=== PATIENT | male | born 1955 | race Caucasian/White ===

== ENCOUNTER 2018-07-27 21:18 | Emergency (ER) | payer MEDICARE, MEDICAID ==
[2018-07-27] MEDS ORDERED: Sodium Chloride 0.9% 10 ML Syringe FLUSH PRN (21:50)
[2018-07-27] MEDS ORDERED: Lactated Ringers 1,000 ML IV ONE (21:50)
--- NOTE | 2018-07-27 22:05 | EDM.PDOC ---
<Phill Naranjo - Last Filed: 07/27/18 22:00> ED HPI GENERAL MEDICAL PROBLEM - General Chief Complaint: Neuro Symptoms/Deficits Stated Complaint: unresponsive Time Seen by Provider: 07/27/18 21:49 Source of Information: Reports: EMS, Other (staff from [facility] here to provide HPI) - History of Present Illness INITIAL COMMENTS - FREE TEXT/NARRATIVE: Patient presents to the ED via EMS with reports of unresponsiveness. He is awake and alert on arrival. Breathing normally. He is intellectually challenged and does not provide any of his own HPI or ROS. Does have history of seizure disorder. No one saw him actively seize today. Reportedly has become more unresponsive throughout the day with an episode of febrility and sweating. He is afebrile here. Does have cough. Is incontinent of stool and urine. Onset: Today, Gradual Duration: Getting Worse Location: Reports: Generalized - Related Data Allergies Allergy/AdvReac Type Severity Reaction Status Date / Time No Known Allergies Allergy Verified 07/27/18 22:09 Home Meds: Home Meds Amoxicillin 875 mg BID 09/10/13 [History] Calcium Carbonate [Calcium Carbonate 250 MG/ML Susp] 5 ml PO BID 09/10/13 [ History] Clobetasol [Clobetasol 0.05%] 30 gm TOP BID 09/10/13 [History] Furosemide 40 mg DAILY 09/10/13 [History] Gabapentin 1,600 mg TID 09/10/13 [History] LORazepam [Ativan] 1 mg PO PRN 09/10/13 [History] Lactulose [Generlac] 09/10/13 [History] Magnesium Hydroxide [Milk of Magnesia] 20 ml PO DAILY 09/10/13 [History] Multivitamin [Tab A Torrie] 1 each PO DAILY 09/10/13 [History] OLANZapine [Olanzapine] 2.5 mg BEDTIME 09/10/13 [History] OXcarbazepine [Trileptal] 1,200 mg PO BID 09/10/13 [History] Omeprazole 20 mg DAILY 09/10/13 [History] PARoxetine [Paxil] 40 mg PO DAILY 09/10/13 [History] Phenytoin Sodium Extended [Dilantin] 200 mg BEDTIME 09/10/13 [History] levETIRAcetam [Levetiracetam] 1,500 mg PO BID 09/10/13 [History] Social & Family History - Living Situation & Occupation Living situation: Reports: Other ED ROS GENERAL - Review of Systems Review Of Systems: See Below (obtained by [facility] staff) Constitutional: Reports: Fever, Diaphoresis HEENT: Reports: No Symptoms Respiratory: Reports: Cough Cardiovascular: Reports: No Symptoms Endocrine: Reports: No Symptoms GI/Abdominal: Reports: No Symptoms : Reports: No Symptoms Musculoskeletal: Reports: No Symptoms Skin: Reports: No Symptoms Neurological: Reports: Weakness Hematologic/Lymphatic: Reports: No Symptoms Immunologic: Reports: No Symptoms ED EXAM, NEURO - Physical Exam Exam: See Below Exam Limited By: Physical Impairment General Appearance: Alert, WD/WN, No Apparent Distress Eye Exam: Bilateral Eye: EOMI, Normal Inspection Ears: Normal TMs Nose: Normal Inspection, Normal Mucosa, No Blood Throat/Mouth: Normal Inspection, Normal Lips, Normal Teeth, Normal Gums, Normal Oropharynx, Normal Voice, No Airway Compromise Head Exam: Atraumatic, Normocephalic Neck: Normal Inspection, Supple, Non-Tender, Full Range of Motion Respiratory/Chest: No Respiratory Distress, Lungs Clear, Normal Breath Sounds, No Accessory Muscle Use, Chest Non-Tender Cardiovascular: Normal Peripheral Pulses, Regular Rate, Rhythm, No Edema, No Gallop, No JVD, No Murmur, No Rub GI/Abdominal: Normal Bowel Sounds, Soft, Non-Tender, No Organomegaly, No Distention, No Abnormal Bruit, No Mass Neurological: Alert, Normal Mood/Affect, Normal Dorsiflexion, CN II-XII Intact, Normal Plantar Flexion, Normal Gait, Normal Reflexes, No Motor/Sensory Deficits , Oriented x 3 Extremities: Normal Inspection, Normal Range of Motion, Non-Tender, No Pedal Edema, Normal Capillary Refill Psychiatric: Normal Affect, Normal Mood Skin Exam: Warm, Dry, Intact, Normal Color, No Rash Course - Vital Signs Last Recorded V/S: Last Vital Signs Temp 35.8 C 07/27/18 21:18 Pulse 63 07/27/18 23:17 Resp 16 07/27/18 23:17 BP 135/58 L 07/27/18 23:17 Pulse Ox 98 07/27/18 21:18 - Orders/Labs/Meds Orders: Active Orders 24 hr Category Date Time Status CULTURE BLOOD [BC] Stat Lab 07/27/18 22:30 Results CULTURE BLOOD [BC] Stat Lab 07/27/18 22:40 Received Blood Culture x2 Reflex Set [OM.PC] Stat Oth 07/27/18 21:57 Ordered Saline Lock Insert [OM.PC] Routine Oth 07/27/18 21:50 Ordered Labs: Laboratory Tests 07/27/18 07/27/18 07/27/18 Range/Units 22:30 22:30 22:30 WBC 9.3 (4.0-10.0) x10^3/uL RBC 4.50 (4.5-6.0) x10^6/uL Hgb 14.0 (14.0-18.0) g/dL Hct 39.8 L (40.0-52.0) % MCV 88.4 D (78.0-93.0) fL MCH 31.1 (26.0-32.0) pg MCHC 35.2 (32.0-36.0) g/dL RDW Coeff of Rolando 12.1 (10.0-15.0) % Plt Count 239 (130-400) x10^3/uL Neut % (Auto) 70.3 (50.0-80.0) % Lymph % (Auto) 15.9 L (25.0-50.0) % [place] % (Auto) 7.5 (2.0-11.0) % Eos % (Auto) 5.9 H (0.0-4.0) % Baso % (Auto) 0.4 (0.2-1.2) % Sodium 132 L (136-145) mmol/L Potassium 4.0 (3.5-5.1) mmol/L Chloride 95 L (98-107) mmol/L Carbon Dioxide 29 (21-32) mmol/L Anion Gap 12.0 (10-20) mmol/L BUN 15 (7-18) mg/dL Creatinine 0.8 (0.70-1.30) mg/dL Est Cr Clr Drug Dosing 89.06 mL/min Estimated GFR (MDRD) > 60 Glucose 116 H (74-106) mg/dL Lactic Acid 1.0 (0.4-2.0) mmol/L Calcium 8.4 L (8.5-10.1) mg/dL Corrected Calcium 8.64 (8.5-10.1) mg/dL Magnesium 2.0 (1.8-2.4) mg/dL Total Bilirubin 0.3 (0.2-1.0) mg/dL AST 16 (15-37) U/L ALT 30 (16-63) U/L Alkaline Phosphatase 110 (46-116) U/L NT-Pro-B Natriuret Pep (<=125) pg/mL Total Protein 7.1 (6.4-8.2) g/dL Albumin 3.7 (3.4-5.0) g/dL Globulin 3.4 Albumin/Globulin Ratio 1.09 /08/10 Range/Units 22:30 WBC (4.0-10.0) x10^3/uL RBC (4.5-6.0) x10^6/uL Hgb (14.0-18.0) g/dL Hct (40.0-52.0) % MCV (78.0-93.0) fL MCH (26.0-32.0) pg MCHC (32.0-36.0) g/dL RDW Coeff of Rolando (10.0-15.0) % Plt Count (130-400) x10^3/uL Neut % (Auto) (50.0-80.0) % Lymph % (Auto) (25.0-50.0) % [place] % (Auto) (2.0-11.0) % Eos % (Auto) (0.0-4.0) % Baso % (Auto) (0.2-1.2) % Sodium (136-145) mmol/L Potassium (3.5-5.1) mmol/L Chloride (98-107) mmol/L Carbon Dioxide (21-32) mmol/L Anion Gap (10-20) mmol/L BUN (7-18) mg/dL Creatinine (0.70-1.30) mg/dL Est Cr Clr Drug Dosing mL/min Estimated GFR (MDRD) Glucose (74-106) mg/dL Lactic Acid (0.4-2.0) mmol/L Calcium (8.5-10.1) mg/dL Corrected Calcium (8.5-10.1) mg/dL Magnesium (1.8-2.4) mg/dL Total Bilirubin (0.2-1.0) mg/dL AST (15-37) U/L ALT (16-63) U/L Alkaline Phosphatase (46-116) U/L NT-Pro-B Natriuret Pep 32 (<=125) pg/mL Total Protein (6.4-8.2) g/dL Albumin (3.4-5.0) g/dL Globulin Albumin/Globulin Ratio Meds: Medications Discontinued Medications Generic Name Dose Route Start Last Admin Trade Name Freq PRN Reason Stop Dose Admin Lactated Ringer's 1,000 mls @ 999 mls/hr 07/27/18 21:50 07/27/18 22:40 Ringers, Lactated IV 07/27/18 22:50 999 mls/hr ONETIME ONE Administration Sodium Chloride 10 ml 07/27/18 21:50 Saline Flush FLUSH ASDIRECTED PRN Keep Vein Open Departure - Departure Disposition: DC/Tfer to Medicaid [facility] Clinical Impression: Seizure - Discharge Information Referrals: Andrew Colorado MD [Primary Care Provider] - Forms: ED Department Discharge Additional Instructions: Lab work was normal. CXR and CT was unremarkable. Follow-up with primary when needed. <Laureen Whitt L - Last Filed: 07/28/18 09:46> ED HPI GENERAL MEDICAL PROBLEM - History of Present Illness INITIAL COMMENTS - FREE TEXT/NARRATIVE: I did take over for Taras. I did review the chest x-ray. I also reviewed the CAT scan and lab results. She was getting thirsty and wanted a diet Coke. Patient was accompanied by staff. He was discharged back home. Drug level was done on his anti-L epileptics. This is a send out. He will be seeing his neurologist on . The evaluation be back by . Patient is return if he has any further issues. Patient is essentially back to his baseline. Blood pressure was rechecked and it was in the 130s systolic. Past Medical History Neurological History: Reports: Brain Injury (Did review his previous medical history.) Social & Family History - Tobacco Use Smoking Status *Q: Never Smoker Departure - Departure Time of Disposition: 23:13 Condition: Good - Discharge Information *PRESCRIPTION DRUG MONITORING PROGRAM REVIEWED*: Not Applicable *COPY OF PRESCRIPTION DRUG MONITORING REPORT IN PATIENT REJI: Not Applicable
[2018-07-27 23:03] LABS: CHLORIDE,CL 95 mmol/L (98-107); SODIUM,NA 132 mmol/L (136-145)
[2018-07-27 23:18] VITALS: BP 135/58
--- NOTE | 2018-07-28 08:33 | CT ---
[id number] CT/CT Head WO IV EXAM: NONCONTRAST HEAD CT INDICATION: Change in unresponsiveness. COMPARISON: None. 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 Moderate to severe cerebellar and mild to moderate cerebral atrophy. No acute hemorrhage, mass effect, midline shift or hydrocephalus. No extra-axial fluid collection. Moderate bilateral ethmoid and left sphenoid sinus mucosal thickening with milder changes in the bilateral maxillary and right sphenoid sinuses. There is some associated osseous hypertrophy of the left sphenoid sinus wall suggesting a chronic or recurrent sinusitis. IMPRESSION: 1. Large chronic right MCA territory infarct. 2. Sinusitis. Kurt Cheema MD 07/28/18 0831 Thank you for allowing us to participate in the care of your patient.
--- NOTE | 2018-07-28 09:12 | CR ---
[id number] RAD/RAD Chest PA or AP 1V EXAM: FRONTAL CHEST INDICATION: Cough and fever. COMPARISON: September 10, 2013. DISCUSSION: Lungs are mildly hypoinflated with mild basilar atelectasis and central vascular crowding. No acute infiltrates are identified, but repeat with improved inspiration could be performed if symptoms persist. Mild apparent cardiomegaly may relate to magnification from portable technique and low lung volumes. IMPRESSION: 1. Hypoinflation. Kurt Cheema MD 07/28/18 0909 Thank you for allowing us to participate in the care of your patient.
== END 2018-07-27 23:51 ==
LOC: VM.ED 21:18
DX: G40.909 Epilepsy, unspecified, not intractable, without status epilepticus (principal); Z79.899 Other long term (current) drug therapy
CPT/HCPCS: 36415; 70450; 71045; 80053; 83605; 83735; 83880; 85025; 87040; 96360; 99285; J7120; 99284-GF

== ENCOUNTER 2019-02-28 14:31 | Inpatient (IN) | payer MEDICARE, MEDICAID ==
[2019-02-28] MEDS ORDERED: Sodium Chloride 0.9% 1,000 ML IV ONE ×3 (14:49→18:17)
--- NOTE | 2019-02-28 15:09 | CR ---
[id number] RAD/RAD Chest PA or AP 1V EXAM: SINGLE VIEW CHEST. INDICATION: SHORTNESS OF BREATH COMPARISON: CORRELATION IS MADE WITH THE EXAM OF JULY 27, 2018 FINDINGS: The left hemidiaphragm is not well seen This likely is technically related The lungs otherwise are clear The cardiomediastinal contour is enlarged but stable There is mild bowel distention IMPRESSION: NO OBVIOUS PNEUMONIA OR EDEMA Cleveland Cardoso MD 02/28/19 4220 Thank you for allowing us to participate in the care of your patient.
--- NOTE | 2019-02-28 16:06 | EDM.PDOC ---
ED HPI GENERAL MEDICAL PROBLEM - General Chief Complaint: General Time Seen by Provider: 02/28/19 14:35 Source of Information: Reports: [facility] Records, Old Records History Limitations: Reports: Physical Impairment - History of Present Illness INITIAL COMMENTS - FREE TEXT/NARRATIVE: Patient had teeth extraction on . After which she did not respond or was slow to respond. He has not been eating or drinking the last couple of days. No increased seizure activity per se. He is here with his staff. He has not had a fever. His blood pressure was 87. After IV fluids it did go up to 91. Talked to Nolan Garcia [employer] at 1645. He agreed to accept the patient. Afterwards the blood pressure dropped to 79 and we did have to give him Solu-Cortef of 100 mg. Also gave him Albumin 25%. Also he received Rocephin after I found out that his lactic acid was 3.6. Blood cultures had already been done. After I saw that his systolic blood pressure had dropped to 79 after talking to the hospitalist I did consider a consultation with [place] however the patient did respond to the volume albumin, and steroid. He also received a DuoNeb. I did schedule another lactic acid 4 hours from the last lactic acid. He does normally take Lasix. His BNP was elevated but we do have to give him some volume but we will have to use it somewhat sparingly after the first 2 L. I had admitted the patient before and he responded well and he was able to start drinking diet Coke which is a favorite for him. He has not had a diet Coke since his tooth extraction. We did catheter him for a urine culture and the urine was quite malodorous. CT of the head is being considered. Onset: Gradual Duration: Getting Worse Location: Reports: Generalized - Related Data Allergies Allergy/AdvReac Type Severity Reaction Status Date / Time No Known Allergies Allergy Verified 02/28/19 15:49 Home Meds: Home Meds Calcium Carbonate [Calcium Carbonate 250 MG/ML Susp] 5 ml PO BID 09/10/13 [ History] Clobetasol [Clobetasol 0.05%] 30 gm TOP BID 09/10/13 [History] Furosemide 40 mg PO DAILY 09/10/13 [History] LORazepam [Ativan] 1 mg PO ASDIRECTED PRN 09/10/13 [History] Lactulose [Generlac] 30 ml PO BEDTIME 09/10/13 [History] Magnesium Hydroxide [Milk of Magnesia] 20 ml PO Q2D 09/10/13 [History] OLANZapine [Olanzapine] 2.5 mg PO BEDTIME 09/10/13 [History] OXcarbazepine [Trileptal] 1,200 mg PO BID 09/10/13 [History] Omeprazole 20 mg PO DAILY 09/10/13 [History] PARoxetine [Paxil] 40 mg PO DAILY 09/10/13 [History] Phenytoin Sodium Extended [Dilantin] 200 mg PO BEDTIME 09/10/13 [History] levETIRAcetam [Levetiracetam] 1,500 mg PO BID 09/10/13 [History] Gabapentin [Neurontin] 600 mg PO TID 02/28/19 [History] Lisinopril 5 mg PO DAILY 02/28/19 [History] Multivitamin with Iron [Tab-A-Torrie with Iron] 1 each PO DAILY 02/28/19 [History] Triamcinolone Acetonide [Triamcinolone Acetonide 0.1% Crm] 1 applic TOP BID 10/10 [History] Past Medical History Neurological History: Reports: Brain Injury, Seizure Other Neuro History: Mental retardation Social & Family History - Tobacco Use Smoking Status *Q: Unknown Ever Smoked - Living Situation & Occupation Living situation: Reports: Other ED ROS GENERAL - Review of Systems Review Of Systems: Comprehensive ROS is negative, except as noted in HPI. ED EXAM, GENERAL - Physical Exam Exam: See Below Exam Limited By: Physical Impairment General Appearance: Lethargic, Moderate Distress Respiratory/Chest: Decreased Breath Sounds, Rhonchi, Other (Adventitious sounds both lungs in the upper airways.) Cardiovascular: Normal Peripheral Pulses, Regular Rate, Rhythm Neurological: Inattentive, Slow to Respond, Unresponsive Skin Exam: Warm, Dry. No: Diaphoretic Course - Vital Signs Last Recorded V/S: Last Vital Signs Temp 36.5 C 02/28/19 14:35 Pulse 76 02/28/19 16:37 Resp 14 02/28/19 14:35 BP 91/40 L 02/28/19 16:50 Pulse Ox - Orders/Labs/Meds Orders: Active Orders 24 hr Category Date Time Status Patient Status [ADT] Routine ADT 02/28/19 17:11 Ordered EKG 12 Lead [EKG Documentation Completion] [RC] STAT Care 02/28/19 14:47 Active Oxygen Therapy [RC] PRN Care 02/28/19 17:11 Ordered RT Aerosol Therapy [RC] ASDIRECTED Care 02/28/19 16:21 Active VTE/DVT Education [RC] PER UNIT ROUTINE Care 02/28/19 17:11 Ordered Vital Signs [RC] Q4H Care 02/28/19 17:11 Ordered AMMONIA [REF] Stat Lab 02/28/19 15:15 Received CULTURE BLOOD [BC] Stat Lab 02/28/19 15:15 Received CULTURE BLOOD [BC] Stat Lab 02/28/19 15:38 Results CULTURE URINE [RM] Stat Lab 02/28/19 16:20 Received LACTIC ACID [CHEM] Routine Lab 02/28/19 19:15 Ordered Albumin 25% [Flexbumin 25%] 50 ml Med 02/28/19 16:38 Active IV ONETIME Enoxaparin [Lovenox] Med 02/28/19 19:00 Ordered 30 mg SUBCUT DAILY Sodium Chloride 0.9% [Normal Saline] 1,000 ml Med 02/28/19 16:41 Active IV ONETIME Blood Culture x2 Reflex Set [OM.PC] Stat Oth 02/28/19 14:48 Ordered Resuscitation Status Routine Resus Stat 02/28/19 17:11 Ordered Medication Orders Enoxaparin Sodium (Lovenox) 30 mg SUBCUT DAILY JESSICA Albumin Human (Flexbumin 25%) 50 mls @ 60 mls/hr IV ONETIME ONE Stop: 02/28/19 17:27 Last Admin: 02/28/19 16:53 Dose: 60 mls/hr Sodium Chloride (Normal Saline) 1,000 mls @ 999 mls/hr IV ONETIME ONE Stop: 02/28/19 17:41 Labs: Laboratory Tests 02/28/19 02/28/19 02/28/19 Range/Units 15:15 15:15 15:15 WBC 30.2 H* (4.0-10.0) x10^3/uL RBC 4.38 L (4.5-6.0) x10^6/uL Hgb 13.7 L (14.0-18.0) g/dL Hct 40.4 (40.0-52.0) % MCV 92.2 D (78.0-93.0) fL MCH 31.3 (26.0-32.0) pg MCHC 33.9 (32.0-36.0) g/dL RDW Coeff of Rolando 12.9 (10.0-15.0) % Plt Count 373 D (130-400) x10^3/uL Add Manual Diff Yes Neutrophils % (Manual) 58 (50-80) % Band Neutrophils % 37 H (0-6) % Lymphocytes % (Manual) 2 L (25-50) % Monocytes % (Manual) 3 (2-11) % Platelet Estimate Adequate Sodium 133 L (136-145) mmol/L Potassium 5.9 H (3.5-5.1) mmol/L Chloride 92 L (98-107) mmol/L Carbon Dioxide 30 (21-32) mmol/L Anion Gap 16.9 (10-20) mmol/L BUN 34 H (7-18) mg/dL Creatinine 3.3 H* D (0.70-1.30) mg/dL Est Cr Clr Drug Dosing TNP Estimated GFR (MDRD) 19 Glucose 158 H (74-106) mg/dL Lactic Acid 3.6 H* (0.4-2.0) mmol/L Calcium 9.0 (8.5-10.1) mg/dL Corrected Calcium 9.72 (8.5-10.1) mg/dL Magnesium 2.9 H (1.8-2.4) mg/dL Total Bilirubin 0.4 (0.2-1.0) mg/dL AST 278 H (15-37) U/L ALT 81 H (16-63) U/L Alkaline Phosphatase 106 (46-116) U/L C-Reactive Protein 42.1 H (<=0.9) mg/dL NT-Pro-B Natriuret Pep 348 H (<=125) pg/mL Total Protein 6.9 (6.4-8.2) g/dL Albumin 3.1 L (3.4-5.0) g/dL Globulin 3.8 Albumin/Globulin Ratio 0.82 Meds: Medications Generic Name Dose Route Start Last Admin Trade Name Freq PRN Reason Stop Dose Admin Enoxaparin Sodium 30 mg 02/28/19 19:00 Lovenox SUBCUT DAILY JESSICA Albumin Human 50 mls @ 60 mls/hr 02/28/19 16:38 02/28/19 16:53 Flexbumin 25% IV 02/28/19 17:27 60 mls/hr ONETIME ONE Administration Sodium Chloride 1,000 mls @ 999 mls/hr 02/28/19 16:41 Normal Saline IV 02/28/19 17:41 ONETIME ONE Discontinued Medications Generic Name Dose Route Start Last Admin Trade Name Diandra PRN Reason Stop Dose Admin Albuterol/Ipratropium 3 ml 02/28/19 16:21 02/28/19 16:35 Duoneb 3.0-0.5 Mg/3 Ml NEB 02/28/19 16:22 3 ml ONETIME ONE Administration Ceftriaxone Sodium 1 gm 02/28/19 16:35 02/28/19 16:41 Rocephin IVPUSH 02/28/19 16:36 1 gm STAT ONE Administration Hydrocortisone Sodium Succinate 100 mg 02/28/19 16:42 02/28/19 16:48 Solu-Cortef IVPUSH 02/28/19 16:43 100 mg ONETIME ONE Administration Sodium Chloride 1,000 mls @ 999 mls/hr 02/28/19 14:49 02/28/19 15:39 Normal Saline IV 02/28/19 15:49 999 mls/hr ONETIME ONE Administration Departure - Departure Time of Disposition: 14:45 Disposition: Admitted As Inpatient 64 Preliminary Cause of *Q: Sepsis & Multi System Organ Failure Clinical Impression: Sepsis associated hypotension, Hyponatremia, Elevated brain natriuretic peptide (BNP) level, Hyperkalemia, Elevated lactic acid level, Elevated C- reactive protein (CRP) Leukocytosis Qualifiers: Leukocytosis type: unspecified Qualified Code(s): D72.829 - Elevated white blood cell count, unspecified - Discharge Information *PRESCRIPTION DRUG MONITORING PROGRAM REVIEWED*: Not Applicable *COPY OF PRESCRIPTION DRUG MONITORING REPORT IN PATIENT REJI: Not Applicable Referrals: Andrew Colorado MD [Primary Care Provider] - Forms: ED Department Discharge - My Orders Last 24 Hours: My Active Orders 02/28/19 14:47 EKG 12 Lead [EKG Documentation Completion] [RC] STAT 02/28/19 14:48 Blood Culture x2 Reflex Set [OM.PC] Stat 02/28/19 15:15 AMMONIA [REF] Stat CULTURE BLOOD [BC] Stat 02/28/19 15:38 CULTURE BLOOD [BC] Stat 02/28/19 16:20 CULTURE URINE [RM] Stat 02/28/19 16:21 RT Aerosol Therapy [RC] ASDIRECTED 02/28/19 16:38 Albumin 25% [Flexbumin 25%] 50 ml IV ONETIME 02/28/19 16:41 Sodium Chloride 0.9% [Normal Saline] 1,000 ml IV ONETIME 02/28/19 17:11 Patient Status [ADT] Routine Oxygen Therapy [RC] PRN VTE/DVT Education [RC] PER UNIT ROUTINE Vital Signs [RC] Q4H Resuscitation Status Routine 02/28/19 19:00 Enoxaparin [Lovenox] 30 mg SUBCUT DAILY 02/28/19 19:15 LACTIC ACID [CHEM] Routine - Assessment/Plan Last 24 Hours: My Active Orders 02/28/19 14:47 EKG 12 Lead [EKG Documentation Completion] [RC] STAT 02/28/19 14:48 Blood Culture x2 Reflex Set [OM.PC] Stat 02/28/19 15:15 AMMONIA [REF] Stat CULTURE BLOOD [BC] Stat 02/28/19 15:38 CULTURE BLOOD [BC] Stat 02/28/19 16:20 CULTURE URINE [RM] Stat 02/28/19 16:21 RT Aerosol Therapy [RC] ASDIRECTED 02/28/19 16:38 Albumin 25% [Flexbumin 25%] 50 ml IV ONETIME 02/28/19 16:41 Sodium Chloride 0.9% [Normal Saline] 1,000 ml IV ONETIME 02/28/19 17:11 Patient Status [ADT] Routine Oxygen Therapy [RC] PRN VTE/DVT Education [RC] PER UNIT ROUTINE Vital Signs [RC] Q4H Resuscitation Status Routine 02/28/19 19:00 Enoxaparin [Lovenox] 30 mg SUBCUT DAILY 02/28/19 19:15 LACTIC ACID [CHEM] Routine
[2019-02-28 16:13] LABS: CHLORIDE,CL 92 mmol/L (98-107); SODIUM,NA 133 mmol/L (136-145)
[2019-02-28 16:16] LABS: ANION GAP 16.9 mmol/L (10-20)
[2019-02-28] MEDS ORDERED: Albuterol/Ipratropium 3.0-0.5 MG/3 ML Neb Soln NEB ONE (16:21)
[2019-02-28] MEDS ORDERED: cefTRIAXone 1 GM Vial IVPUSH ONE (16:35)
[2019-02-28] MEDS ORDERED: Albumin 25% 50 ML IV ONE (16:38)
[2019-02-28] MEDS ORDERED: Hydrocortisone Sodium Succinate 100 MG/2 ML SDV IVPUSH ONE (16:42)
[2019-02-28 18:05] VITALS: BP 93/37; PULSE 78
[2019-02-28] MEDS ORDERED: Ampicillin/Sulbactam Na 3 GM Vial IVPUSH ONE (18:17)
[2019-02-28] MEDS ORDERED: Ampicillin/Sulbactam Na 3 GM in Sodium Chloride 0.9% 100 ML IV ONE (18:30)
[2019-02-28] MEDS ORDERED: Enoxaparin 30 MG/0.3 ML Syringe SUBCUT SCH (19:00)
--- NOTE | 2019-02-28 20:01 | DISCH ---
CHIEF COMPLAINT: Lethargy. HISTORY OF PRESENT ILLNESS: The patient was brought into the emergency room at [facility] in [place] for increased lethargy. According to the shelter staff, the patient recently had 3 teeth extracted on . They have noticed since then the patient has been very lethargic and has not been eating or drinking. The patient's baseline is he is able to answer yes/no questions. He is normally alert. He makes his needs known by answering yes or no questions. Upon arrival to the emergency room, the patient was nonverbal and very lethargic. The patient was unable to answer any questions. The history and review of systems were obtained per shelter staff. The patient has a history of CP and seizure disorder. The patient has been a long-term resident of the [facility] in [place] since 1988. The patient is bedbound and wheelchair bound. DISCHARGE DISPOSITION: [place], [place]. CODE STATUS: Code 2. PAST MEDICAL HISTORY: 1. CP. 2. Seizure disorder. SURGICAL HISTORY: Recent tooth extraction. FAMILY HISTORY: Noncontributory. SOCIAL HISTORY: The patient is a resident of the [facility] in [place], [place]. The patient is a code 2. The patient's guardian is Dashawn Pierce from [place], [place]. The patient does not smoke. The patient does not drink alcohol. DISCHARGE MEDICATIONS: 1. Calcium carbonate 1250 mg/5 mL twice daily. 2. Clobetasol topical twice daily. 3. Furosemide 40 mg 1 tablet p.o. daily. 4. Gabapentin 600 mg 1 tablet p.o. 3 times daily. 5. Lactulose 10 g/15 mL 30 mL p.o. daily at bedtime. 6. Keppra 1500 mg p.o. twice daily. 7. Lisinopril 5 mg 1 tablet p.o. daily. 8. Lorazepam 1 mg p.o. as needed. 9. Magnesium hydroxide 20 mL p.o. every second day. 10.Multivitamin with iron 1 tablet p.o. daily. 11.Olanzapine 2.5 mg p.o. daily at bedtime. 12.Omeprazole 20 mg 1 capsule p.o. daily. 13.Trileptal 1200 mg 1 tablet p.o. twice daily. 14.Paroxetine 40 mg 1 tablet p.o. daily. 15.Dilantin 200 mg 1 tablet p.o. at bedtime. 16.Triamcinolone 0.1% cream topically twice daily. DISCHARGE REVIEW OF SYSTEMS: Unable to obtain. DISCHARGE PHYSICAL EXAMINATION: General: The patient is very lethargic, the patient does respond to painful stimuli, no acute distress. Respiratory: Tachypneic, scattered rhonchi throughout. Cardiovascular: Regular rate and rhythm, no murmurs. Abdomen: Soft, bowel sounds active x4, no hepatosplenomegaly. Skin: Warm and dry. Neurological: The patient is lethargic. The patient is arousable to painful stimuli. DISCHARGE LABORATORY WORK: 1. CBC: White blood cell count 30.2, hemoglobin 13.7, hematocrit 40.5, and platelets are 373,000; bands 37%. 2. CMP: Sodium is 133, potassium 5.9, chloride 92, CO2 is 30, anion gap is 16.9, BUN is 34, creatinine is 3.3, and glucose is 158. Lactic acid is 3.6. Calcium is 9.0, magnesium is 2.9, total bilirubin is 0.4, AST is 278, ALT is 81, and alkaline phosphatase is 106. C-reactive protein is 42.1. Total protein 6.9 and albumin 3.1. 3. BNP 348. 4. Urinalysis: Results are pending. IMAGING STUDIES: 1. Chest x-ray: No acute cardiopulmonary process or edema. 2. CT maxillofacial: Results are pending. ASSESSMENT: 1. Septic shock of unknown etiology. 2. Cerebral palsy. 3. Seizure disorder. PLAN: The case was discussed with Dr. Navarro, [facility]. The patient was accepted in transfer for the diagnosis of septic shock. I did speak with the patient's POA, who agreed with the transfer. The patient will be transferred via ALS to [facility] in [place], [place]. was completed in its entirety. The patient was accepted in transfer by Dr. Navarro. The patient was hemodynamically stable upon discharge. The patient did receive an additional 1.5 L of normal saline and 3 g of Unasyn prior to departure. TB: 02/28/2019 18:45:29 MODL: 02/28/2019 19:53:35 /[id number]
--- NOTE | 2019-03-01 03:02 | CT ---
[id number] CT/CT Facial Bones WO IV Exam: CT Facial Bones WO IV Clinical Data: DENTAL EXTRACTION SEPSIS COMPARISON: NO PREVIOUS SIMILAR EXAM IS AVAILABLE FINDINGS: There is motion artifact IV contrast was not used There is no obvious abscess Oral surgical changes appear to be present Correlation with exact history is needed Intracranial encephalomalacic changes are seen IMPRESSION: NO OBVIOUS ORAL OR FACIAL ABSCESS LIMITED STUDY Cleveland Cardoso MD 03/01/19 0303 Thank you for allowing us to participate in the care of your patient.
== END 2019-02-28 21:25 | disposition short-term general hospital (02) | DRG 871 ==
LOC: VM.ED 14:31 → VM.MS 17:11
PROVIDERS: ADMIT Nurse Practitioner Family; ATTEND Family Medicine
DX: A41.9 Sepsis, unspecified organism (principal); E87.1 Hypo-osmolality and hyponatremia; R65.21 Severe sepsis with septic shock; R97.1 Elevated cancer antigen 125 [CA 125]; D72.829 Elevated white blood cell count, unspecified; R74.0 Nonspecific elevation of levels of transaminase and lactic acid dehydrogenase [LDH]; R79.0 Abnormal level of blood mineral; E87.5 Hyperkalemia; Z87.820 Personal history of traumatic brain injury; G40.909 Epilepsy, unspecified, not intractable, without status epilepticus; G80.9 Cerebral palsy, unspecified; Z79.899 Other long term (current) drug therapy
CPT/HCPCS: 36415; 70486; 71045; 80053; 82140; 83605; 83735; 83880; 85025; 86140; 87040; 87086; 87088; 87186; 87804; 87804-59; 93005; 94640; 96361; 96365; 96375; 99285-25; J0295; J0696; J1650; J1720; J3370; J7030; J7050; J7620-GY; P9047

== ENCOUNTER 2019-03-14 10:56 | Inpatient (IN) | payer MEDICARE, MEDICAID ==
[2019-03-14] MEDS ORDERED: Sodium Chloride 0.9% 10 ML Syringe FLUSH PRN (11:11)
--- NOTE | 2019-03-14 12:26 | CR ---
[id number] RAD/RAD Chest PA or AP 1V EXAM: RAD Chest PA or AP 1V INDICATION: COUGH,CONFUSION. COMPARISON: February 28, 2019. DISCUSSION: Parenchymal opacification the left mid and lower lung not seen previously. Findings are most consistent with pneumonia and a small effusion. Subtle patchy parenchymal opacification in the right mid and upper lung could also represent pneumonia as well. IMPRESSION: Abnormal appearance of the lungs since the prior examination from February 28, 2019 suggesting pneumonia, described above. George Farrell MD 03/14/19 0054 Thank you for allowing us to participate in the care of your patient.
[2019-03-14] MEDS ORDERED: Piperacillin/Tazobactam 4.5 GM in Sodium Chloride 0.9% 100 ML IV ONE (12:39)
[2019-03-14 12:40] LABS: CHLORIDE,CL 109 mmol/L (98-107); SODIUM,NA 154 mmol/L (136-145)
[2019-03-14 12:41] LABS: ANION GAP 13.2 mmol/L (10-20)
[2019-03-14] MEDS ORDERED: Acetaminophen 325 MG Tab PO PRN (14:00)
[2019-03-14] MEDS ORDERED: LORazepam 1 MG Tab PO PRN (14:05)
[2019-03-14] MEDS: Sodium Chloride 0.45% with KCl 1,000 ML IV SCH (14:35)
[2019-03-14 16:15] LABS: CHLORIDE,CL 112 mmol/L (98-107); SODIUM,NA 154 mmol/L (136-145)
[2019-03-14 16:16] LABS: ANION GAP 16.5 mmol/L (10-20)
[2019-03-14] MEDS ORDERED: Piperacillin/Tazobactam 4.5 GM in Sodium Chloride 0.9% 100 ML IV SCH (17:15)
[2019-03-14] MEDS ORDERED: VANCOMYCIN IV SCH (17:30)
[2019-03-14] MEDS ORDERED: SODIUM CHLORIDE 0.9% IV SCH (17:30)
--- NOTE | 2019-03-14 18:32 | HP ---
CHIEF COMPLAINT: Fever and lethargy. HISTORY OF PRESENT ILLNESS: This is a 63-year-old male who lives at the [facility] with a history of cerebral palsy, possible skull fracture as an who had just been discharged from [place] on the after an 11-day stay for a severe pneumonia with acute hypoxic and hypercapnic respiratory failure and sepsis. He required BiPAP. While he was there, he had some lung collapse. His repeat x-rays prior to leaving actually looked okay but did show bilateral infiltrates. He got some IV Zosyn in [place] but then was on cefepime, vancomycin, and Flagyl while he was there. He eventually was deescalated to ceftriaxone and completed his antibiotics while he was in [place]. While in [place], his family reports he was even not eating and drinking well, was having high sodiums there. He was able to be weaned off oxygen, came back to [facility] but unfortunately spiked a 102.9 fever this morning, and was unable to eat anything. Staff member states they did chart some hamburger was eaten last night, although he is supposed to be on a pureed and thickened liquid diet. He was also having loose stools but is on laxatives. The patient's white count had normalized and his sodium was normal on 03/10/2019, came in today with a white count up to 12.7, sodium 154. The patient currently is nonverbal. I spoke with both his sister and his brother and [facility] staff to obtain the history. Prior to this, he had not been getting admitted for pneumonia as per his family. ALLERGIES: None. MEDICATIONS: DuoNeb 3 times a day for 4 days, so he would have still been on those; hypertonic saline 4 mL 2 times a day for 5 more days. He has some Kenalog cream, Trileptal 1200 b.i.d., Prilosec 20 mg daily, Zyprexa 2.5 at bedtime, multivitamin with iron, milk of magnesia 30 mL every other day, Ativan if needed for seizures, lisinopril 5 mg daily, Keppra 1500 b.i.d., lactulose 20 g at bedtime, Neurontin 600 t.i.d., Lasix 40 mg daily, Dilantin 200 at bedtime, and calcium 500 mg twice a day. 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 PAST SURGICAL HISTORY: None listed. FAMILY HISTORY: Both parents are . He has a sister and a brother living. SOCIAL HISTORY: He is disabled. He is single. He lives at [facility]. There is no reported alcohol or smoking. REVIEW OF SYSTEMS: Unobtainable from the patient. Per chart review, there has been trouble swallowing and choking on food. It should be noted that he apparently has lost now 16 pounds over the last 9 months. PHYSICAL EXAMINATION: Vital Signs: At the time I saw the patient, his temperature was 97.4, T-max at the hospital was 99.9; his pulse was 94; blood pressure 101/63; respiratory rate 18; and O2 of 92% on room air, it was 86% on room air in the ER. General: He was in no acute distress. Heart: Regular rate and rhythm with distant tones. No murmur appreciated. Lungs: Lung sounds were decreased with poor respiratory effort. He had rhonchi noted in the left lung base. Right lung was also decreased but no crackles noted. Abdomen: Nondistended. Positive bowel sounds. Soft, nontender. Extremities: Warm and dry. No edema. Mental Status: He was not alert enough to answer status questions. His pupils were equal, round, and reactive to light. He did respond to painful stimuli. He opened his eyes to verbal stimuli. LABORATORY DATA: Lab work did show white count 12.7, hemoglobin 14.1, and platelets 491. INR 1.1. Sodium 154, potassium 3.2, chloride 109, bicarbonate 35, BUN 30, creatinine 1, glucose 159, lactic 1.7, calcium 9.9, magnesium 2.4, bilirubin 0.4, AST 82, ALT 120, CRP 8.6, ProBNP 63, albumin 3.1, and TSH 0.13. UA was showing 0 to 5 wbc's and rbc's. Chest x-ray was showing significant left lower lung infiltrate and there was also some patchy opacification in the right mid and upper lung that could also represent pneumonia. ASSESSMENT AND PLAN: 1. Aspiration pneumonia, which is recurrent. He recently had a prolonged stay at [place]. We will empirically start him on vancomycin and Zosyn especially given his history of methicillin-resistant Staphylococcus aureus. I will sent sputum and blood cultures. 2. Sepsis due to aspiration pneumonia. 3. Known cerebral palsy and intellectual disability with trouble swallowing. Discussed with his brother. They are not interested in pursuing a feeding tube. 4. Hypernatremia, presumably due to poor oral intake from his overall condition and also getting sick again with pneumonia. We will give him half-normal saline at 75 mL/h. We will repeat later today when we repeat his lactic. 5. Hypokalemia. We will replace with the intravenous. 6. Dysphagia. When he is awake and alert, we can have him working with Speech. 7. Acute hypoxic respiratory failure due to pneumonia. We will continue him on oxygen here. 8. Seizure disorder. We will continue his home medications. If he is not alert and awake enough to swallow, we will have to give them intravenous. PLAN: At this point, the patient is admitted for acute cares for IV antibiotics, IV fluids, and monitoring and treatment of electrolytes. Discussed with family. He will be here at least 2 nights stay. Primary care, Dr. Colorado can resume care on Saturday. For DVT prophylaxis, I will place him on Lovenox. I will continue his home blood pressure medications but hold the Lasix due to the hypernatremia. He is a code level 3. MKA: 03/14/2019 17:22:40 MODL: 03/14/2019 18:25:57 /[id number]
[2019-03-14] MEDS: Gabapentin 300 MG Cap PO SCH (20:14)
[2019-03-14] MEDS: levETIRAcetam 500 MG Tab PO SCH (20:14)
[2019-03-14] MEDS: OLANZapine 2.5 MG Tab PO SCH (20:14)
[2019-03-14] MEDS: Phenytoin 100 MG Cap.ER PO SCH (20:14)
[2019-03-14] MEDS: OXcarbazepine 300 MG Tab PO SCH (20:15)
[2019-03-14] MEDS: Clobetasol 0.05% Crm 30 GM Tube TOP SCH (20:18)
[2019-03-14] MEDS: SODIUM CHLORIDE 10% NEB SCH (20:19)
[2019-03-14] MEDS: Piperacillin/Tazobactam 3.375 GM in Sodium Chloride 0.9% 100 ML IV SCH (20:20)
[2019-03-15] MEDS: Piperacillin/Tazobactam 3.375 GM in Sodium Chloride 0.9% 100 ML IV SCH ×3 (04:04→19:52)
[2019-03-15] MEDS: SODIUM CHLORIDE 10% NEB SCH ×2 (06:07→19:52)
[2019-03-15] MEDS: levETIRAcetam 500 MG Tab PO SCH ×2 (08:09→19:51)
[2019-03-15] MEDS: Enoxaparin 40 MG/0.4 ML Syringe SUBCUT SCH (08:09)
[2019-03-15] MEDS: Clobetasol 0.05% Crm 30 GM Tube TOP SCH ×2 (08:10→19:50)
[2019-03-15] MEDS: OXcarbazepine 300 MG Tab PO SCH ×2 (08:11→19:50)
[2019-03-15] MEDS: Gabapentin 300 MG Cap PO SCH ×3 (08:12→19:51)
[2019-03-15] MEDS: Omeprazole 20 MG Cap.CR PO SCH (08:13)
[2019-03-15] MEDS: Lisinopril 5 MG Tab PO SCH (08:13)
[2019-03-15 08:27] LABS: ANION GAP 14.1 mmol/L (10-20); CHLORIDE,CL 114 mmol/L (98-107); SODIUM,NA 155 mmol/L (136-145)
[2019-03-15] MEDS: Sodium Chloride 0.45% with KCl 1,000 ML IV SCH ×3 (11:08→23:21)
--- NOTE | 2019-03-15 11:44 | PN ---
Progress Note for ALFONZO HELTON Date: 03/15/2019 Room #: VM.202 SUBJECTIVE: This is hospital day #2 on a 63-year-old with cerebral palsy, who lives in [facility], who comes in with a recurrent pneumonia. He had just been treated at [facility]. He had a 102.9 fever prior to admission, but he has been afebrile here. He still continues to be lethargic. He had a high sodium level. He has been able to take his medications, but not really eating or drinking anything. He did receive fluids, but they were stopped overnight due to some incompatibility with the antibiotics. However, now he has a second IV in. Otherwise, he is saturating in the mid 90s on 2 L of oxygen. He is not normally on oxygen. He has had good urine output. We are strictly monitoring with the Abbasi due to his hypernatremia. No diarrhea. Blood pressures have been good despite being off his Lasix. OBJECTIVE: Vital Signs: His temperature is 99.6, pulse 82, blood pressure 113/47, respiratory rate 20, O2 of 98 on room air. General: He is in no acute distress. Heart: Regular rate and rhythm. S1, S2 without murmur. Lungs: Sounds are clear in the upper bases, but decreased, especially, over the left base with rhonchi. Abdomen: Slightly distended, but positive bowel sounds. Nontender. Extremities: Warm and dry. No edema. He does have contracture of that left arm. Mental Status: He is awake. He is alert. He is responding to verbal stimuli, but he is not answering questions. LABORATORY DATA: Lab work today did show his white count to have improved from 12.7 to 7.4; hemoglobin down to 12.0, possibly hemodilution; platelets 386. Sodium 155, potassium 3.1, chloride 114, bicarb 30, BUN 33, creatinine 1, glucose 122, calcium 8.9. AST down to 45, ALT down to 77, albumin 2.5. ASSESSMENT: 1. Aspiration pneumonia, recurrent. He just got out of the hospital at [facility] 03/11 after a prolonged state He is on vancomycin and Zosyn. 2. Sepsis due to aspiration pneumonia, improving. He is afebrile. 3. Known history of cerebral palsy and intellectual disabilities with history of seizure disorder. No seizures. So far, he has been able to take his medications. It has been difficult to get in the Keppra and Trileptal. We will check with pharmacy if there are any other forms like capsules or sprinkles. Keppra can be given IV if he is unable to take it. 4. Hypernatremia. He has been getting IV fluids. It went up to 155 from 154. We will increase his levels to 125 an hour and repeat at 3 p.m. 5. Hypokalemia. He will be getting that with his fluids. 6. Dysphagia. This is chronic. We will order a speech consult. Family had expressed not pursuing any G-tubes. 7. Acute hypoxic respiratory failure secondary to pneumonia. His saturations are improving. We will continue to wean him off oxygen. PLAN: At this point, the patient will continue acute cares with IV antibiotics, vancomycin and Zosyn, while awaiting cultures. We will increase IV fluids to 125 an hour and repeat at 3 p.m. today and again tomorrow morning. For DVT prophylaxis, he is on Lovenox. His primary care doctor is Dr. [place]. His brother was here today, and I did update him. However, I did report that was prior to seeing the patient myself and just visiting with the nurse. Overall, he does appear to be a little bit more alert than yesterday, so hopefully he can get up and eat and drink some on his own. This would be greatly encouraged. MKA: 03/15/2019 11:06:21 MODL: 03/15/2019 11:36:48 /[id number]
[2019-03-15 15:24] LABS: CHLORIDE,CL 116 mmol/L (98-107); SODIUM,NA 156 mmol/L (136-145)
[2019-03-15 15:25] LABS: ANION GAP 13.3 mmol/L (10-20)
[2019-03-15] MEDS: OLANZapine 2.5 MG Tab PO SCH (19:51)
[2019-03-15] MEDS: Phenytoin 100 MG Cap.ER PO SCH (19:51)
[2019-03-16] MEDS: Piperacillin/Tazobactam 3.375 GM in Sodium Chloride 0.9% 100 ML IV SCH ×3 (04:24→19:57)
[2019-03-16] MEDS: SODIUM CHLORIDE 10% NEB SCH ×2 (07:29→20:02)
[2019-03-16] MEDS: Enoxaparin 40 MG/0.4 ML Syringe SUBCUT SCH (07:53)
[2019-03-16] MEDS: levETIRAcetam 500 MG Tab PO SCH ×2 (07:54→20:01)
[2019-03-16] MEDS: Gabapentin 300 MG Cap PO SCH ×3 (07:54→20:01)
[2019-03-16] MEDS: Lisinopril 5 MG Tab PO SCH (07:54)
[2019-03-16] MEDS: Omeprazole 20 MG Cap.CR PO SCH (07:54)
[2019-03-16] MEDS: OXcarbazepine 300 MG Tab PO SCH ×2 (07:55→20:01)
[2019-03-16] MEDS: Clobetasol 0.05% Crm 30 GM Tube TOP SCH ×2 (07:56→20:01)
[2019-03-16 08:20] LABS: CHLORIDE,CL 118 mmol/L (98-107); SODIUM,NA 155 mmol/L (136-145)
[2019-03-16 08:21] LABS: ANION GAP 13.7 mmol/L (10-20)
--- NOTE | 2019-03-16 09:25 | PCM.PN ---
- General Info Date of Service: 03/16/19 Admission Dx/Problem (Free Text): History: On his readmission he was febrile with hypernatremia, hypokalemia and obtundation. His WBC was 12,700 on admission. Now he is afebrile, WBC down to 6500, hypernatremia is about the same, 155 and he is getting 1/2NS with 20 of KCl at 150 mL per hour. K+ is up to 3.7, was 3.2 on admit. He is on Zosyn and vancomycin IV. He did start to eat a little better today, is looking more alert. He had trouble with enuresis in the past, back in the s, was Rxd with DDAVP for diabetes insipidus but developed too much edema. He has not had hypernatremia in the last 15 years at least since his DDAVP was D/Cd, so this would not seem to be ADH deficiency from brain trauma. Exam: -Lung sounds are clear, no respiratory distress -Heart normal and regular -He recognized me entering the room and pointed and smiled today -Mild edema of his R hand, none otherwise -Mild scaling rash on R foot, has an IV running in his L leg and a Abbasi cath Impression: -Apparently recurrent pneumonia, suspect aspiration; blood cultures remaining negative so far -He is DNR with no anticipation of feeding tube according to family -Hypernatremia, this seems to be new for him. -Hypokalemia, with IV K+ it is now up to low normal Plan: -Continue the Zosyn and vancomycin until we have a final assessment of his blood cultures -Continue same IV fluid for now, recheck Na+. Continue the IV K+. - Patient Data Vitals - Most Recent: Last Vital Signs Temp 36.5 C 03/16/19 06:00 Pulse 90 03/16/19 06:00 Resp 18 03/16/19 06:00 BP 125/69 03/16/19 07:54 Pulse Ox 88 L 03/16/19 07:31 Weight - Most Recent: 83.461 kg I&O - Last 24 Hours: Intake & Output 03/15/19 03/16/19 03/16/19 22:59 06:59 14:59 Intake Total 1425 2050 120 Output Total 500 300 Balance 925 1750 120 Lab Results Last 24 Hours: Laboratory Results - last 24 hr 03/15/19 03/16/19 03/16/19 Range/Units 15:03 07:08 07:08 WBC 6.5 (4.0-10.0) x10^3/uL RBC 3.62 L (4.5-6.0) x10^6/uL Hgb 11.1 L (14.0-18.0) g/dL Hct 35.7 L (40.0-52.0) % MCV 98.6 H (78.0-93.0) fL MCH 30.7 (26.0-32.0) pg MCHC 31.1 L (32.0-36.0) g/dL RDW Coeff of Rolando 13.9 (10.0-15.0) % Plt Count 382 (130-400) x10^3/uL Neut % (Auto) 68.8 (50.0-80.0) % Lymph % (Auto) 17.2 L (25.0-50.0) % [place] % (Auto) 8.0 (2.0-11.0) % Eos % (Auto) 4.9 H (0.0-4.0) % Baso % (Auto) 1.1 (0.2-1.2) % Sodium 156 H 155 H (136-145) mmol/L Potassium 3.3 L 3.7 (3.5-5.1) mmol/L Chloride 116 H 118 H (98-107) mmol/L Carbon Dioxide 30 27 (21-32) mmol/L Anion Gap 13.3 13.7 (10-20) mmol/L BUN 28 H 20 H (7-18) mg/dL Creatinine 0.8 1.0 (0.70-1.30) mg/dL Est Cr Clr Drug Dosing 92.06 73.65 mL/min Estimated GFR (MDRD) > 60 > 60 Glucose 98 106 (74-106) mg/dL Calcium 8.7 8.4 L (8.5-10.1) mg/dL Corrected Calcium 9.84 (8.5-10.1) mg/dL Total Bilirubin 0.4 (0.2-1.0) mg/dL AST 41 H (15-37) U/L ALT 59 (16-63) U/L Alkaline Phosphatase 77 (46-116) U/L Total Protein 6.0 L (6.4-8.2) g/dL Albumin 2.2 L (3.4-5.0) g/dL Globulin 3.8 Albumin/Globulin Ratio 0.58 Carrillo Results Last 24 Hours: Microbiology 03/14/19 11:49 Aerobic Blood Culture - Preliminary Blood - Venous - Lab Draw NO GROWTH AFTER 1 DAY Anaerobic Blood Culture - Preliminary NO GROWTH AFTER 1 DAY 03/14/19 11:40 Aerobic Blood Culture - Preliminary Blood - Venous NO GROWTH AFTER 1 DAY Anaerobic Blood Culture - Final Med Orders - Current: Current Medications Acetaminophen (Tylenol) 650 mg PO Q4H PRN PRN Reason: Pain (Mild 1-3)/fever Clobetasol Propionate (Clobetasol 0.05%) 0 gm TOP BID [facility] Last Admin: 03/16/19 07:56 Dose: 1 applic Enoxaparin Sodium (Lovenox) 40 mg SUBCUT DAILY [facility] Last Admin: 03/16/19 07:53 Dose: 40 mg Gabapentin (Neurontin) 600 mg PO TID [facility] Last Admin: 03/16/19 07:54 Dose: 600 mg Potassium Chloride/Sodium Chloride (1/2 Ns With 20 Meq Kcl) 1,000 mls @ 150 mls /hr IV ASDIRECTED [facility] Last Admin: 03/15/19 23:21 Dose: 150 mls/hr Piperacillin Sod/Tazobactam (Sod 3.375 gm/ Sodium Chloride) 100 mls @ 25 mls/ hr IV Q8H [facility] Last Admin: 03/16/19 04:24 Dose: 25 mls/hr Vancomycin HCl 1.25 gm/ Sodium (Chloride) 250 mls @ 200 mls/hr IV Q12H [facility] Last Admin: 03/16/19 06:24 Dose: 200 mls/hr Levetiracetam (Keppra) 1,500 mg PO BID [facility] Last Admin: 03/16/19 07:54 Dose: 1,500 mg Lisinopril (Prinivil) 5 mg PO DAILY [facility] Last Admin: 03/16/19 07:54 Dose: 5 mg Lorazepam (Ativan) 1 mg PO ASDIRECTED PRN PRN Reason: Seizures Olanzapine (Zyprexa) 2.5 mg PO BEDTIME [facility] Last Admin: 03/15/19 19:51 Dose: 2.5 mg Omeprazole (Omeprazole) 20 mg PO DAILY [facility] Last Admin: 03/16/19 07:54 Dose: 20 mg Oxcarbazepine (Trileptal) 1,200 mg PO BID [facility] Last Admin: 03/16/19 07:55 Dose: 1,200 mg Phenytoin Sodium (Phenytoin) 200 mg PO BEDTIME [facility] Last Admin: 03/15/19 19:51 Dose: 200 mg Sodium Chloride (Saline Flush) 10 ml FLUSH ASDIRECTED PRN PRN Reason: Keep Vein Open Last Admin: 03/15/19 04:05 Dose: 10 ml Sodium Chloride (Sodium Chloride 10%) 3 ml NEB BIDRT [facility] Last Admin: 03/16/19 07:29 Dose: 3 ml Discontinued Medications Piperacillin Sod/Tazobactam (Sod 4.5 gm/ Sodium Chloride) 100 mls @ 200 mls/hr IV STAT ONE Stop: 03/14/19 13:08 Last Admin: 03/14/19 13:02 Dose: 200 mls/hr Piperacillin Sod/Tazobactam (Sod 4.5 gm/ Sodium Chloride) 100 mls @ 25 mls/hr IV Q8H [facility] Last Admin: 03/14/19 17:53 Dose: Not Given Vancomycin HCl 1,251.915 mg/ (Sodium Chloride) 250 mls @ 166.667 mls/hr IV Q12H [facility] Last Admin: 03/14/19 17:53 Dose: Not Given Sepsis Event Note - Evaluation Sepsis Screening Result: No Definite Risk - Focused Exam Vital Signs: Vital Signs Temp Pulse Resp BP BP Pulse Ox Pulse Ox 03/16/19 07:54 125/69 03/16/19 07:31 88 L 03/16/19 06:00 36.5 C 90 18 129/65 94 L 03/16/19 01:55 36.3 C 88 18 133/72 98 03/15/19 21:47 36.5 C 82 18 117/57 L 98 Date Exam was Performed: 03/16/19 Time Exam was Performed: 09:24 - Problem List Review Problem List Initiated/Reviewed/Updated: Yes - My Orders Last 24 Hours: My Active Orders 03/17/19 07:30 BMP [BASIC METABOLIC PANEL,BMP] [CHEM] Routine
[2019-03-16] MEDS: Sodium Chloride 0.45% with KCl 1,000 ML IV SCH ×2 (09:37→16:21)
[2019-03-16] MEDS: OLANZapine 2.5 MG Tab PO SCH (20:01)
[2019-03-16] MEDS: Phenytoin 100 MG Cap.ER PO SCH (20:01)
[2019-03-17] MEDS: Sodium Chloride 0.45% with KCl 1,000 ML IV SCH (00:12)
[2019-03-17] MEDS: Piperacillin/Tazobactam 3.375 GM in Sodium Chloride 0.9% 100 ML IV SCH (04:25)
[2019-03-17 06:12] VITALS: PULSE 85
[2019-03-17 07:01] LABS: CHLORIDE,CL 119 mmol/L (98-107); SODIUM,NA 156 mmol/L (136-145)
[2019-03-17 07:02] LABS: ANION GAP 15.9 mmol/L (10-20)
[2019-03-17] MEDS: SODIUM CHLORIDE 10% NEB SCH (07:08)
[2019-03-17] MEDS: Enoxaparin 40 MG/0.4 ML Syringe SUBCUT SCH (09:12)
[2019-03-17] MEDS: levETIRAcetam 500 MG Tab PO SCH (09:13)
[2019-03-17] MEDS: Omeprazole 20 MG Cap.CR PO SCH (09:13)
[2019-03-17] MEDS: Gabapentin 300 MG Cap PO SCH (09:13)
[2019-03-17] MEDS: OXcarbazepine 300 MG Tab PO SCH (09:14)
[2019-03-17] MEDS: Lisinopril 5 MG Tab PO SCH (09:14)
[2019-03-17] MEDS: Clobetasol 0.05% Crm 30 GM Tube TOP SCH (09:15)
--- NOTE | 2019-03-17 09:15 | PCM.DCSUM1 ---
Discharge Summary - Hospital Course Free Text/Narrative:: Final Diagnoses: -Cerebral palsy -Moderate intellectual disability. -Bronchopneumonia -Dysphagia -Hypernatremia new Secondary Diagnoses: -Hypertension, controlled -Complex partial seizure disorder -Osteoporosis -Edentulous, was on pured diet only for this in the past and not for aspiration or swallowing problems Reason for Admission: Temp of 102, altered level of consciousness, unable to eat. Recent hospitalization for sepsis and acute respiratory failure and lung collapse. Hx dysphagia, supposed to be on thickened liquids but had eaten solid food the night before. Initial Findings: -Hypernatremia, Na+ 154 -Hypokalemia, K+ 3.2 -Leukocytosis, WBC 12,700 -Lab otherwise OK, glucose 159, Ca++ 9.9, Mg++ 2.4, Hb 14.1, lactic acid 1.7, creatinine 1, TSH 0.13. -UA normal -CXR shows L lower lung infiltrate and patchy infiltrate on R Treatment and Course in Hospital: On presumption of aspiration pneumonia he was started on Zosyn and vancomycin IV , and because of his hypernatremia and hypokalemia got IV And S with 20 of KCl at 150 mL/hour. His K+ came up to 3.9 but his Na+ remained the same. He started eating fairly well, thickened liquids and seemed to tolerate them OK. In the past feeding tube has been considered inappropriate because he would have to be tied down to keep from pulling it out and family would not want that. He became and remained afebrile. Repeat WBC was normal, Na+ still 156 at the time of discharge. Blood cultures remained negative. Condition on Discharge: -No tachypnea or any respiratory distress -Lung sounds clear -CXR has not been repeated -Afebrile -Still on O2 buts oximetry was 96% so should be able to wean off -He is more alert, recognizes people and smiles though as before nonverbal Discharge Plan -Will stay on swing bed until his oral intake is back to normal and we have a chance to see if that improves his Na+ -DC vancomycin, Zosyn and give Augmentin 800 mg BID. -Continue thickened liquids orally -Continue DNR status -Plan repeat BMP and CXR on 03/19. Diagnosis: Stroke: No Modified [place] Scale: Sev.Disablility Bedridden,Incont.&Require Constant Nrsg.Care/Attention Modified [place] Scale Score: 5 - Discharge Data Discharge Date: 03/17/19 Discharge Disposition: DC/Tfer W/I Hosp To Swing 61 Condition: Good - Referral to Home Health Primary Care Physician: Andrew Colorado MD - Patient Summary/Data Consults: Consultations 03/15/19 11:51 Consult to Speech Language Pathology [GROUP INSURANCE SPECIAL AGENT Evaluation and Treatment] [CONS] Routine PT Evaluation and Treatment [CONS] Routine - Discharge Plan Home Medications: Home Meds Calcium Carbonate [Calcium Carbonate 250 MG/ML Susp] 5 ml PO BID 09/10/13 [ History] Clobetasol [Clobetasol 0.05%] 30 gm TOP BID 09/10/13 [History] Furosemide 40 mg PO DAILY 09/10/13 [History] LORazepam [Ativan] 1 mg PO ASDIRECTED PRN 09/10/13 [History] Lactulose [Generlac] 30 ml PO BEDTIME 09/10/13 [History] Magnesium Hydroxide [Milk of Magnesia] 30 ml PO Q2D 09/10/13 [History] OLANZapine [Olanzapine] 2.5 mg PO BEDTIME 09/10/13 [History] OXcarbazepine [Trileptal] 1,200 mg PO BID 09/10/13 [History] Omeprazole 20 mg PO DAILY 09/10/13 [History] Phenytoin Sodium Extended [Dilantin] 200 mg PO BEDTIME 09/10/13 [History] levETIRAcetam [Levetiracetam] 1,500 mg PO BID 09/10/13 [History] Gabapentin [Neurontin] 600 mg PO TID 02/28/19 [History] Multivitamin with Iron [Tab-A-Torrie with Iron] 1 each PO DAILY 02/28/19 [History] Triamcinolone Acetonide [Triamcinolone Acetonide 0.1% Crm] 1 applic TOP BID 10/10 [History] lisinopriL [Lisinopril] 5 mg PO DAILY 02/28/19 [History] Sodium Chloride 7% [HyperSal 7%] 1 inhalation PO BID 03/14/19 [History] Forms: ED Department Discharge Referrals: Andrew Colorado MD [Primary Care Provider] - - Discharge Summary/Plan Comment DC Time >30 min.: No - Patient Data Vitals - Most Recent: Last Vital Signs Temp 37.2 C 03/17/19 06:00 Pulse 85 03/17/19 06:00 Resp 18 03/17/19 06:00 BP 136/85 03/17/19 06:00 Pulse Ox 96 03/17/19 07:10 Weight - Most Recent: 83.461 kg I&O - Last 24 hours: Intake & Output 03/16/19 03/17/19 03/17/19 22:59 06:59 14:59 Intake Total 1800 Output Total 350 1250 Balance -350 550 Lab Results - Last 24 hrs: Laboratory Results - last 24 hr 03/17/19 Range/Units 06:37 Sodium 156 H (136-145) mmol/L Potassium 3.9 (3.5-5.1) mmol/L Chloride 119 H (98-107) mmol/L Carbon Dioxide 25 (21-32) mmol/L Anion Gap 15.9 (10-20) mmol/L BUN 13 (7-18) mg/dL Creatinine 1.1 (0.70-1.30) mg/dL Est Cr Clr Drug Dosing 66.95 mL/min Estimated GFR (MDRD) > 60 Glucose 95 (74-106) mg/dL Calcium 8.1 L (8.5-10.1) mg/dL SHA Results - Last 24 hrs: Microbiology 03/14/19 11:49 Aerobic Blood Culture - Preliminary Blood - Venous - Lab Draw NO GROWTH AFTER 2 DAYS Anaerobic Blood Culture - Preliminary NO GROWTH AFTER 2 DAYS 03/14/19 11:40 Aerobic Blood Culture - Preliminary Blood - Venous NO GROWTH AFTER 2 DAYS Anaerobic Blood Culture - Final Med Orders - Current: Current Medications Acetaminophen (Tylenol) 650 mg PO Q4H PRN PRN Reason: Pain (Mild 1-3)/fever Amoxicillin/Clavulanate Potassium (Augmentin 400 Mg/5 Ml Susp) 800 mg PO Q12HR [facility] Stop: 03/20/19 20:00 Clobetasol Propionate (Clobetasol 0.05%) 0 gm TOP BID [facility] Last Admin: 03/16/19 20:01 Dose: 1 applic Enoxaparin Sodium (Lovenox) 40 mg SUBCUT DAILY [facility] Last Admin: 03/16/19 07:53 Dose: 40 mg Gabapentin (Neurontin) 600 mg PO TID [facility] Last Admin: 03/16/19 20:01 Dose: 600 mg Levetiracetam (Keppra) 1,500 mg PO BID [facility] Last Admin: 03/16/19 20:01 Dose: 1,500 mg Lisinopril (Prinivil) 5 mg PO DAILY [facility] Last Admin: 03/16/19 07:54 Dose: 5 mg Lorazepam (Ativan) 1 mg PO ASDIRECTED PRN PRN Reason: Seizures Olanzapine (Zyprexa) 2.5 mg PO BEDTIME [facility] Last Admin: 03/16/19 20:01 Dose: 2.5 mg Omeprazole (Omeprazole) 20 mg PO DAILY [facility] Last Admin: 03/16/19 07:54 Dose: 20 mg Oxcarbazepine (Trileptal) 1,200 mg PO BID [facility] Last Admin: 03/16/19 20:01 Dose: 1,200 mg Phenytoin Sodium (Phenytoin) 200 mg PO BEDTIME [facility] Last Admin: 03/16/19 20:01 Dose: 200 mg Sodium Chloride (Saline Flush) 10 ml FLUSH ASDIRECTED PRN PRN Reason: Keep Vein Open Last Admin: 03/15/19 04:05 Dose: 10 ml Sodium Chloride (Sodium Chloride 10%) 3 ml NEB BIDRT [facility] Last Admin: 03/17/19 07:08 Dose: 3 ml Discontinued Medications Piperacillin Sod/Tazobactam (Sod 4.5 gm/ Sodium Chloride) 100 mls @ 200 mls/hr IV STAT ONE Stop: 03/14/19 13:08 Last Admin: 03/14/19 13:02 Dose: 200 mls/hr Potassium Chloride/Sodium Chloride (1/2 Ns With 20 Meq Kcl) 1,000 mls @ 150 mls /hr IV ASDIRECTED [facility] Last Admin: 03/17/19 00:12 Dose: 150 mls/hr Piperacillin Sod/Tazobactam (Sod 4.5 gm/ Sodium Chloride) 100 mls @ 25 mls/hr IV Q8H [facility] Last Admin: 03/14/19 17:53 Dose: Not Given Vancomycin HCl 1,251.915 mg/ (Sodium Chloride) 250 mls @ 166.667 mls/hr IV Q12H [facility] Last Admin: 03/14/19 17:53 Dose: Not Given Piperacillin Sod/Tazobactam (Sod 3.375 gm/ Sodium Chloride) 100 mls @ 25 mls/ hr IV Q8H [facility] Last Admin: 03/17/19 04:25 Dose: 25 mls/hr Vancomycin HCl 1.25 gm/ Sodium (Chloride) 250 mls @ 200 mls/hr IV Q12H [facility] Last Admin: 03/17/19 06:17 Dose: 200 mls/hr
[2019-03-17 10:48] VITALS: BP 127/67
[2019-03-17] MEDS ORDERED: Amoxicillin/Clavulanate K 400-57 MG/5 ML Susp 100 ML Bottle PO SCH (12:00)
--- NOTE | 2019-03-18 04:28 | EDM.PDOC ---
ED HPI GENERAL MEDICAL PROBLEM - General Chief Complaint: Respiratory Problem Time Seen by Provider: 03/14/19 13:03 Source of Information: Reports: Patient History Limitations: Reports: No Limitations - History of Present Illness INITIAL COMMENTS - FREE TEXT/NARRATIVE: Pt. presents to ER with concerns of aspiration. He is a resident at [facility] and was discharged recently from [place] for aspiration pneumonia. He is supposed to be getting thickened liquids, but staff relates that he has been getting regular liquids. Staff states that he has been weaker and less active today. He seems fatigued. Staff states that he has not been coughing. He has been running a low grade temp. 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 - Related Data Allergies Allergy/AdvReac Type Severity Reaction Status Date / Time No Known Allergies Allergy Verified 03/14/19 12:37 Home Meds: Home Meds Calcium Carbonate [Calcium Carbonate 250 MG/ML Susp] 5 ml PO BID 09/10/13 [ History] Clobetasol [Clobetasol 0.05%] 30 gm TOP BID 09/10/13 [History] Furosemide 40 mg PO DAILY 09/10/13 [History] LORazepam [Ativan] 1 mg PO ASDIRECTED PRN 09/10/13 [History] Lactulose [Generlac] 30 ml PO BEDTIME 09/10/13 [History] Magnesium Hydroxide [Milk of Magnesia] 30 ml PO Q2D 09/10/13 [History] OLANZapine [Olanzapine] 2.5 mg PO BEDTIME 09/10/13 [History] OXcarbazepine [Trileptal] 1,200 mg PO BID 09/10/13 [History] Omeprazole 20 mg PO DAILY 09/10/13 [History] Phenytoin Sodium Extended [Dilantin] 200 mg PO BEDTIME 09/10/13 [History] levETIRAcetam [Levetiracetam] 1,500 mg PO BID 09/10/13 [History] Gabapentin [Neurontin] 600 mg PO TID 02/28/19 [History] Multivitamin with Iron [Tab-A-Torrie with Iron] 1 each PO DAILY 02/28/19 [History] Triamcinolone Acetonide [Triamcinolone Acetonide 0.1% Crm] 1 applic TOP BID 10/10 [History] lisinopriL [Lisinopril] 5 mg PO DAILY 02/28/19 [History] Sodium Chloride 7% [HyperSal 7%] 1 inhalation PO BID 03/14/19 [History] Past Medical History Neurological History: Reports: Brain Injury, Seizure Other Neuro History: Mental retardation - Infectious Disease History Infectious Disease History: Reports: Chicken Pox, MRSA Social & Family History - Tobacco Use Smoking Status *Q: Unknown Ever Smoked - Caffeine Use Caffeine Use: Reports: None - Recreational Drug Use Recreational Drug Use: No - Living Situation & Occupation Living situation: Reports: Other ED ROS GENERAL - Review of Systems Review Of Systems: Unable To Obtain Reason Not Obtained: non-verbal care home resident. ED EXAM, GENERAL - Physical Exam Exam: See Below Exam Limited By: No Limitations General Appearance: Alert, WD/WN, No Apparent Distress Throat/Mouth: Other (food retained in mouth) Neck: Normal Inspection, Supple, Non-Tender, Full Range of Motion Respiratory/Chest: No Respiratory Distress, Lungs Clear, Normal Breath Sounds, No Accessory Muscle Use, Chest Non-Tender Cardiovascular: Normal Peripheral Pulses, Regular Rate, Rhythm, No Edema, No Gallop, No JVD, No Murmur, No Rub Peripheral Pulses: 4+: Radial (L) GI/Abdominal: Soft, Non-Tender, No Organomegaly, No Distention (Male) Exam: Deferred Rectal (Males) Exam: Deferred Extremities: Normal Inspection, Normal Range of Motion, No Pedal Edema, Normal Capillary Refill Neurological: CN II-XII Intact, No Motor/Sensory Deficits Skin Exam: Warm, Dry, Intact, Normal Color, No Rash Lymphatic: No Adenopathy Course - Vital Signs Last Recorded V/S: Last Vital Signs Temp 36.8 C 03/17/19 10:00 Pulse 85 03/17/19 10:00 Resp 17 03/17/19 10:00 BP 127/67 03/17/19 10:00 Pulse Ox 93 L 03/17/19 10:00 - Orders/Labs/Meds Labs: Laboratory Tests 03/14/19 03/14/19 03/14/19 Range/Units 11:40 11:40 11:40 WBC 12.7 H (4.0-10.0) x10^3/uL RBC 4.61 (4.5-6.0) x10^6/uL Hgb 14.1 (14.0-18.0) g/dL Hct 45.0 (40.0-52.0) % MCV 97.6 H D (78.0-93.0) fL MCH 30.6 (26.0-32.0) pg MCHC 31.3 L (32.0-36.0) g/dL RDW Coeff of Rolando 14.4 (10.0-15.0) % Plt Count 491 H D (130-400) x10^3/uL Neut % (Auto) 84.6 H (50.0-80.0) % Lymph % (Auto) 7.2 L (25.0-50.0) % [place] % (Auto) 7.1 (2.0-11.0) % Eos % (Auto) 0.7 (0.0-4.0) % Baso % (Auto) 0.4 (0.2-1.2) % PT 12.6 (10.0-12.8) SEC INR 1.1 L (2.0-3.5) Sodium 154 H D (136-145) mmol/L Potassium 3.2 L D (3.5-5.1) mmol/L Chloride 109 H D (98-107) mmol/L Carbon Dioxide 35 H (21-32) mmol/L Anion Gap 13.2 (10-20) mmol/L BUN 30 H (7-18) mg/dL Creatinine 1.0 D (0.70-1.30) mg/dL Est Cr Clr Drug Dosing TNP Estimated GFR (MDRD) > 60 Glucose 159 H (74-106) mg/dL Lactic Acid (0.4-2.0) mmol/L Calcium 9.9 (8.5-10.1) mg/dL Corrected Calcium 10.62 H (8.5-10.1) mg/dL Magnesium 2.4 (1.8-2.4) mg/dL Total Bilirubin 0.4 (0.2-1.0) mg/dL AST 82 H (15-37) U/L ALT 120 H (16-63) U/L Alkaline Phosphatase 114 (46-116) U/L C-Reactive Protein 8.6 H (<=0.9) mg/dL NT-Pro-B Natriuret Pep 63 (<=125) pg/mL Total Protein 7.7 (6.4-8.2) g/dL Albumin 3.1 L (3.4-5.0) g/dL Globulin 4.6 Albumin/Globulin Ratio 0.67 TSH, Ultra Sensitive 0.130 L (0.358-3.74) uIU/mL 03/14/ Range/Units 11:40 WBC (4.0-10.0) x10^3/uL RBC (4.5-6.0) x10^6/uL Hgb (14.0-18.0) g/dL Hct (40.0-52.0) % MCV (78.0-93.0) fL MCH (26.0-32.0) pg MCHC (32.0-36.0) g/dL RDW Coeff of Rolando (10.0-15.0) % Plt Count (130-400) x10^3/uL Neut % (Auto) (50.0-80.0) % Lymph % (Auto) (25.0-50.0) % [place] % (Auto) (2.0-11.0) % Eos % (Auto) (0.0-4.0) % Baso % (Auto) (0.2-1.2) % PT (10.0-12.8) SEC INR (2.0-3.5) Sodium (136-145) mmol/L Potassium (3.5-5.1) mmol/L Chloride (98-107) mmol/L Carbon Dioxide (21-32) mmol/L Anion Gap (10-20) mmol/L BUN (7-18) mg/dL Creatinine (0.70-1.30) mg/dL Est Cr Clr Drug Dosing Estimated GFR (MDRD) Glucose (74-106) mg/dL Lactic Acid 1.7 (0.4-2.0) mmol/L Calcium (8.5-10.1) mg/dL Corrected Calcium (8.5-10.1) mg/dL Magnesium (1.8-2.4) mg/dL Total Bilirubin (0.2-1.0) mg/dL AST (15-37) U/L ALT (16-63) U/L Alkaline Phosphatase (46-116) U/L C-Reactive Protein (<=0.9) mg/dL NT-Pro-B Natriuret Pep (<=125) pg/mL Total Protein (6.4-8.2) g/dL Albumin (3.4-5.0) g/dL Globulin Albumin/Globulin Ratio TSH, Ultra Sensitive (0.358-3.74) uIU/mL Meds: Medications Discontinued Medications Generic Name Dose Route Start Last Admin Trade Name Freq PRN Reason Stop Dose Admin Acetaminophen 650 mg 03/14/19 14:00 Tylenol PO Q4H PRN Pain (Mild 1-3)/fever Amoxicillin/Clavulanate Potassium 800 mg 03/17/19 12:00 Augmentin 400 Mg/5 Ml Susp PO 03/20/19 20:00 Q12HR [facility] Clobetasol Propionate 0 gm 03/14/19 20:00 03/17/19 09:15 Clobetasol 0.05% TOP 1 applic BID JESSICA Administration Enoxaparin Sodium 40 mg 03/15/19 08:00 03/17/19 09:12 Lovenox SUBCUT 40 mg DAILY JESSICA Administration Gabapentin 600 mg 03/14/19 20:00 03/17/19 09:13 Neurontin PO 600 mg TID JESSICA Administration Piperacillin Sod/Tazobactam 100 mls @ 200 mls/hr 03/14/19 12:39 03/14/19 13: 02 Sod 4.5 gm/ Sodium Chloride IV 03/14/19 13:08 200 mls/hr STAT ONE Administration Potassium Chloride/Sodium Chloride 1,000 mls @ 150 mls/hr 03/14/19 14:00 00:12 1/2 Ns With 20 Meq Kcl IV 150 mls/hr ASDIRECTED JESSICA Administration Piperacillin Sod/Tazobactam 100 mls @ 25 mls/hr 03/14/19 17:15 03/14/19 17:53 Sod 4.5 gm/ Sodium Chloride IV Not Given Q8H [facility] Vancomycin HCl 1,251.915 mg/ 250 mls @ 166.667 mls/hr 03/14/19 17:30 17:53 Sodium Chloride IV Not Given Q12H [facility] Piperacillin Sod/Tazobactam 100 mls @ 25 mls/hr 03/14/19 20:30 03/17/19 04:25 Sod 3.375 gm/ Sodium Chloride IV 25 mls/hr Q8H JESSICA Administration Vancomycin HCl 1.25 gm/ Sodium 250 mls @ 200 mls/hr 03/14/19 18:00 03/17/19 06:17 Chloride IV 200 mls/hr Q12H [facility] Administration Levetiracetam 1,500 mg 03/14/19 20:00 03/17/19 09:13 Keppra PO 1,500 mg BID JESSICA Administration Lisinopril 5 mg 03/15/19 08:00 03/17/19 09:14 Prinivil PO 5 mg DAILY J[facility] Administration Lorazepam 1 mg 03/14/19 14:05 Ativan PO ASDIRECTED PRN Seizures Olanzapine 2.5 mg 03/14/19 20:00 03/16/19 20:01 Zyprexa PO 2.5 mg BEDTIME JESSICA Administration Omeprazole 20 mg 03/15/19 08:00 03/17/19 09:13 Omeprazole PO Not Given DAILY [facility] Oxcarbazepine 1,200 mg 03/14/19 20:00 03/17/19 09:14 Trileptal PO 1,200 mg BID JESSICA Administration Phenytoin Sodium 200 mg 03/14/19 20:00 03/16/19 20:01 Phenytoin PO 200 mg BEDTIME JESSICA Administration Sodium Chloride 10 ml 03/14/19 11:11 03/15/19 04:05 Saline Flush FLUSH 10 ml ASDIRECTED PRN Administration Keep Vein Open Sodium Chloride 3 ml 03/14/19 20:00 03/17/19 07:08 Sodium Chloride 10% NEB 3 ml BIDRT JESSICA Administration Departure - Departure Time of Disposition: 17:00 Disposition: Admitted As Inpatient 64 Clinical Impression: Aspiration pneumonia - Discharge Information Sepsis Event Note - Evaluation Sepsis Screening Result: No Definite Risk - Problem List Review Problem List Initiated/Reviewed/Updated: Yes - Assessment/Plan Plan: Pt. was started on Zosyn in ER. Pt. admitted acutely per Dr. Mortensen. He is a code 2 DNR/DNI.
== END 2019-03-17 10:45 | disposition swing bed (61) | DRG 871 ==
LOC: VM.ED 10:56 → VM.MS 13:03
PROVIDERS: ADMIT Internal Medicine; ATTEND Family Medicine
DX: A41.9 Sepsis, unspecified organism (principal); G40.909 Epilepsy, unspecified, not intractable, without status epilepticus; F79 Unspecified intellectual disabilities; J69.0 Pneumonitis due to inhalation of food and vomit; J96.01 Acute respiratory failure with hypoxia; E87.0 Hyperosmolality and hypernatremia; G40.209 Localization-related (focal) (partial) symptomatic epilepsy and epileptic syndromes with complex partial seizures, not intractable, without status epilepticus; G80.9 Cerebral palsy, unspecified; K08.109 Complete loss of teeth, unspecified cause, unspecified class; Z66 Do not resuscitate; F71 Moderate intellectual disabilities; I10 Essential (primary) hypertension; M81.0 Age-related osteoporosis without current pathological fracture; K06.9 Disorder of gingiva and edentulous alveolar ridge, unspecified; E87.6 Hypokalemia; L73.2 Hidradenitis suppurativa; E78.5 Hyperlipidemia, unspecified; F39 Unspecified mood [affective] disorder; N39.44 Nocturnal enuresis; H26.9 Unspecified cataract; Z79.899 Other long term (current) drug therapy; Z99.81 Dependence on supplemental oxygen; Z86.14 Personal history of Methicillin resistant Staphylococcus aureus infection
CPT/HCPCS: 36415; 51702; 71045; 80048; 80053; 81001; 83605; 83735; 83880; 84443; 85025; 85610; 86140; 87040; 94640; 94760; 96374; 99284-25; 99284-GF; A9270-GY; J1650; J2543; J3370; J3480; J7050

== ENCOUNTER 2019-03-17 08:44 | Inpatient (IN) | payer MEDICARE, MEDICAID ==
[2019-03-17] MEDS ORDERED: LORazepam 1 MG Tab PO PRN (11:49)
[2019-03-17] MEDS ORDERED: Gabapentin 300 MG Cap PO SCH (14:00)
[2019-03-17] MEDS: Amoxicillin/Clavulanate K 400-57 MG/5 ML Susp 100 ML Bottle PO SCH (19:38)
[2019-03-17] MEDS: CALCIUM CARBONATE 1250 MG/5 ML PO SCH (19:39)
[2019-03-17] MEDS: PHENYTOIN 100 MG PO SCH (19:40)
[2019-03-17] MEDS: OXCARBAZEPINE 600 MG PO SCH (19:41)
[2019-03-17] MEDS: OLANZAPINE 2.5 MG PO SCH (19:42)
[2019-03-17] MEDS: GABAPENTIN 600 MG PO SCH (19:43)
[2019-03-17] MEDS: CLOBETASOL 0.05% TOP SCH (19:43)
[2019-03-17] MEDS: LEVETIRACETAM 750 MG PO SCH (19:44)
[2019-03-17] MEDS: Lactulose Soln 10 GM/15 ML **OWN MED PO SCH (19:45)
[2019-03-17] MEDS ORDERED: OXcarbazepine 300 MG Tab PO SCH (20:00)
[2019-03-17] MEDS ORDERED: Lactulose Soln 10 GM/15 ML 30 ML UD Cup PO SCH (20:00)
[2019-03-17] MEDS ORDERED: Phenytoin 100 MG Cap.ER PO SCH (20:00)
[2019-03-17] MEDS ORDERED: OLANZapine 2.5 MG Tab PO SCH (20:00)
[2019-03-17] MEDS ORDERED: levETIRAcetam 500 MG Tab PO SCH (20:00)
[2019-03-17] MEDS ORDERED: Clobetasol 0.05% Crm 30 GM Tube TOP SCH (20:00)
[2019-03-17] MEDS ORDERED: Calcium Carbonate 1,250 MG/5 ML Susp 5 ML UD Cup PO SCH (20:00)
[2019-03-17] MEDS: [UNRECOGNIZED DRUG - OTHER] PO SCH (20:38)
[2019-03-17] MEDS: Triamcinolone Acetonide 0.1% Crm 15 GM Tube TOP SCH (20:39)
[2019-03-18] MEDS ORDERED: Omeprazole 20 MG Cap.CR PO SCH (07:00)
[2019-03-18] MEDS ORDERED: Lisinopril 5 MG Tab PO SCH (08:00)
[2019-03-18] MEDS ORDERED: Beta-Carotene (Vitamin A) w/Vitamin C & E plus Minerals Tab PO SCH (08:00)
[2019-03-18] MEDS: CALCIUM CARBONATE 1250 MG/5 ML PO SCH ×2 (08:06→20:00)
[2019-03-18] MEDS: LEVETIRACETAM 750 MG PO SCH ×2 (08:07→20:03)
[2019-03-18] MEDS: GABAPENTIN 600 MG PO SCH ×3 (08:07→20:01)
[2019-03-18] MEDS: OXCARBAZEPINE 600 MG PO SCH ×2 (08:08→19:50)
[2019-03-18] MEDS: [UNRECOGNIZED DRUG - OTHER] PO SCH (08:09)
[2019-03-18] MEDS: Omeprazole 20 MG Cap.CR **OWN MED PO SCH (08:09)
[2019-03-18] MEDS: LISINOPRIL 5 MG PO SCH (08:10)
[2019-03-18] MEDS: [UNRECOGNIZED DRUG - OTHER] PO SCH ×2 (08:11→20:01)
[2019-03-18] MEDS: CLOBETASOL 0.05% TOP SCH ×2 (08:12→20:21)
[2019-03-18] MEDS: Triamcinolone Acetonide 0.1% Crm 15 GM Tube TOP SCH (08:12)
[2019-03-18] MEDS: Amoxicillin/Clavulanate K 400-57 MG/5 ML Susp 100 ML Bottle PO SCH ×2 (08:13→20:07)
[2019-03-18] MEDS ORDERED: MAGNESIUM HYDROXIDE 400 MG/5 ML PO SCH (12:00)
[2019-03-18] MEDS ORDERED: OXcarbazepine 300 MG Tab PO ONE (19:53)
[2019-03-18] MEDS: Lactulose Soln 10 GM/15 ML **OWN MED PO SCH (20:00)
[2019-03-18] MEDS: PHENYTOIN 100 MG PO SCH (20:02)
[2019-03-18] MEDS: OLANZAPINE 2.5 MG PO SCH (20:03)
[2019-03-19] MEDS: Omeprazole 20 MG Cap.CR **OWN MED PO SCH (06:00)
[2019-03-19] MEDS: OXCARBAZEPINE 600 MG PO SCH ×2 (08:51→19:55)
[2019-03-19] MEDS: LEVETIRACETAM 750 MG PO SCH ×2 (08:51→19:53)
[2019-03-19] MEDS: GABAPENTIN 600 MG PO SCH ×3 (08:52→19:52)
[2019-03-19] MEDS: LISINOPRIL 5 MG PO SCH (08:53)
[2019-03-19] MEDS: [UNRECOGNIZED DRUG - OTHER] PO SCH (08:54)
[2019-03-19] MEDS: CALCIUM CARBONATE 1250 MG/5 ML PO SCH (08:55)
[2019-03-19] MEDS: Amoxicillin/Clavulanate K 400-57 MG/5 ML Susp 100 ML Bottle PO SCH (08:58)
[2019-03-19] MEDS: [UNRECOGNIZED DRUG - OTHER] PO SCH (09:25)
[2019-03-19] MEDS: CLOBETASOL 0.05% TOP SCH (09:25)
[2019-03-19 14:06] LABS: CHLORIDE,CL 123 mmol/L (98-107)
[2019-03-19 14:09] LABS: ANION GAP 15.4 mmol/L (10-20); SODIUM,NA 164 mmol/L (136-145)
--- NOTE | 2019-03-19 14:44 | CR ---
[id number] RAD/RAD Chest PA or AP 1V EXAM: SINGLE VIEW CHEST. INDICATION: ASPIRATION PNEUMONIA COMPARISON: CORRELATION IS MADE WITH THE EXAM OF MARCH 14, 2019 FINDINGS: There is a persistent faint right upper lobe perihilar infiltrate No other infiltrate is seen The left lung apex is obscured by the patient's head and neck The cardiomediastinal contour is stable IMPRESSION: FAINT RIGHT UPPER LOBE PERIHILAR INFILTRATE NO OTHER OBVIOUS PATHOLOGY CURRENTLY CONSIDER FOLLOW-UP PA AND LATERAL CHEST RADIOGRAPH Cleveland Cardoso MD 03/19/19 0287 Thank you for allowing us to participate in the care of your patient.
[2019-03-19] MEDS: PHENYTOIN 100 MG PO SCH (19:54)
[2019-03-20] MEDS: GABAPENTIN 600 MG PO SCH ×3 (09:32→19:57)
[2019-03-20] MEDS: LEVETIRACETAM 750 MG PO SCH ×2 (09:32→19:58)
[2019-03-20] MEDS: OXCARBAZEPINE 600 MG PO SCH ×2 (09:33→19:58)
--- NOTE | 2019-03-20 10:34 | PCM.PN ---
- General Info Date of Service: 03/20/19 Admission Dx/Problem (Free Text): History: He went to Swing Bed because he has pneumonia was improving and his vital signs were stable and he was afebrile. However, his ongoing problem was hypernatremia and this was not improving. On instructions from his hospitalization in [place] which included a swallowing evaluation, he was put on thickened liquids, but he does not like them very much, and his oral intake has been very poor. His Na+ actually went up from 156 on T/F to Swing Bed up to 164 yesterday. He is quite obtunded again. I had a long discussion yesterday with his brother who is guardian, we agreed that since the only treatment for this would be IVs in the short-term, and a feeding tube in the long-term, which everyone feels patient would dislike very much, in view of his overall general condition we agreed to withhold vigorous care and concentrate on comfort. 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 - Patient Data Vitals - Most Recent: Last Vital Signs Temp 37.2 C 03/20/19 05:56 Pulse 95 03/20/19 05:56 Resp 17 03/20/19 05:56 BP 155/76 H 03/20/19 05:56 Pulse Ox 88 L 03/20/19 07:45 Weight - Most Recent: 83.461 kg I&O - Last 24 Hours: Intake & Output 03/19/19 03/20/19 03/20/19 22:59 06:59 14:59 Intake Total 100 Balance 100 Lab Results Last 24 Hours: Laboratory Results - last 24 hr 03/19/19 Range/Units 13:46 Sodium 164 H* (136-145) mmol/L Potassium 3.4 L (3.5-5.1) mmol/L Chloride 123 H (98-107) mmol/L Carbon Dioxide 29 (21-32) mmol/L Anion Gap 15.4 (10-20) mmol/L BUN 15 (7-18) mg/dL Creatinine 1.1 (0.70-1.30) mg/dL Est Cr Clr Drug Dosing 66.95 mL/min Estimated GFR (MDRD) > 60 Glucose 134 H (74-106) mg/dL Calcium 9.8 D (8.5-10.1) mg/dL Med Orders - Current: Current Medications Lorazepam (Ativan) 1 mg PO ASDIRECTED PRN PRN Reason: Seizures Gabapentin 600mg Tab (Own Med) 0 each PO TID [facility] Last Admin: 03/20/19 09:32 Dose: 1 each Levetiracetam 750mg (Tab Own Med) 0 each PO BID [facility] Last Admin: 03/20/19 09:32 Dose: 1 each Oxcarbazepine 600mg (Tabs Own Med) 0 each PO BID [facility] Last Admin: 03/20/19 09:33 Dose: 1 each Phenytoin Sodium (Phenytoin) 200 mg PO BEDTIME [facility] Last Admin: 03/19/19 19:54 Dose: 200 mg Discontinued Medications Amoxicillin/Clavulanate Potassium (Augmentin 400 Mg/5 Ml Susp) 800 mg PO Q12HR [facility] Stop: 03/20/19 20:01 Last Admin: 03/19/19 08:58 Dose: 800 mg Calcium Carbonate/Glycine (Calcium Carbonate 250 Mg/Ml Susp) 1,250 mg PO BID [facility] Calcium Carbonate/Glycine (Calcium Carbonate 250 Mg/Ml Susp) 0 mg PO BID [facility] Last Admin: 03/19/19 08:55 Dose: 1,250 mg Clobetasol Propionate (Clobetasol 0.05%) 0 gm TOP BID [facility] Clobetasol Propionate (Clobetasol 0.05%) 0 gm TOP BID [facility] Last Admin: 03/19/19 09:25 Dose: 1 applic Gabapentin (Neurontin) 600 mg PO TID [facility] Last Admin: 03/17/19 14:24 Dose: 600 mg Lactulose (Cephulac) 20 gm PO BEDTIME [facility] Lactulose (Cephulac) 0 gm PO BEDTIME [facility] Last Admin: 03/18/19 20:00 Dose: 20 gm Levetiracetam (Keppra) 1,500 mg PO BID [facility] Lisinopril (Prinivil) 5 mg PO DAILY [facility] Lisinopril (Prinivil) 5 mg PO DAILY [facility] Last Admin: 03/19/19 08:53 Dose: 5 mg Magnesium Hydroxide (Milk Of Magnesia) 30 ml PO Q2D [facility] Last Admin: 03/18/19 12:44 Dose: 30 ml Multivitamins/Minerals (Prosight) 1 tab PO DAILY [facility] Olanzapine (Zyprexa) 2.5 mg PO BEDTIME [facility]ESS[facility] Olanzapine (Zyprexa) 2.5 mg PO BEDTIME [facility] Last Admin: 03/18/19 20:03 Dose: 2.5 mg Omeprazole (Omeprazole) 20 mg PO ACBREAKFAST [facility] Omeprazole (Omeprazole) 20 mg PO ACBREAKFAST [facility] Last Admin: 03/19/19 06:00 Dose: 20 mg Oxcarbazepine (Trileptal) 1,200 mg PO BID [facility] Oxcarbazepine (Trileptal) 600 mg PO ONETIME ONE Stop: 03/18/19 19:54 Last Admin: 03/18/19 20:05 Dose: 600 mg Saline 10% Neb Unit (Dose Own Med) 0 each PO BID [facility] Stop: 03/22/19 08:01 Last Admin: 03/19/19 08:54 Dose: 1 each Tab-A-Torrie With Iron (Tabs Own Med) 1 each PO DAILY [facility] Last Admin: 03/19/19 09:25 Dose: 1 each Phenytoin Sodium (Phenytoin) 200 mg PO BEDTIME [facility] Triamcinolone Acetonide (Triamcinolone Acetonide 0.1% Crm) 0 gm TOP BID [facility] Last Admin: 03/18/19 08:12 Dose: Not Given Sepsis Event Note - Evaluation Sepsis Screening Result: No Definite Risk - Focused Exam Vital Signs: Vital Signs Temp Pulse Resp BP Pulse Ox Pulse Ox 03/20/19 07:45 88 L 03/20/19 05:56 37.2 C 95 17 155/76 H 93 L Date Exam was Performed: 03/20/19 Time Exam was Performed: 10:33 - Problem List Review Problem List Initiated/Reviewed/Updated: Yes
[2019-03-20] MEDS ORDERED: LORAZEPAM 2 MG/ML BUCCAL PRN (16:00)
[2019-03-20] MEDS: LORAZEPAM 2 MG/ML BUCCAL SCH (19:49)
[2019-03-20] MEDS: PHENYTOIN 100 MG PO SCH (19:58)
[2019-03-21] MEDS: LORAZEPAM 2 MG/ML BUCCAL SCH ×2 (08:37→19:54)
[2019-03-21] MEDS: GABAPENTIN 600 MG PO SCH ×3 (08:37→20:00)
[2019-03-21] MEDS: LEVETIRACETAM 750 MG PO SCH ×2 (08:37→20:00)
[2019-03-21] MEDS: OXCARBAZEPINE 600 MG PO SCH ×2 (08:37→20:00)
[2019-03-21] MEDS: Atropine 1% Ophth Soln 5 ML BOTTLE SL PRN (19:55)
[2019-03-21] MEDS: PHENYTOIN 100 MG PO SCH (19:59)
[2019-03-22] MEDS: Atropine 1% Ophth Soln 5 ML BOTTLE SL PRN ×2 (02:17→19:54)
[2019-03-22 06:12] VITALS: BP 133/72
[2019-03-22] MEDS: LORAZEPAM 2 MG/ML BUCCAL SCH ×2 (08:21→19:53)
[2019-03-22] MEDS: Acetaminophen 650 MG Supp RECTAL PRN ×3 (08:27→22:40)
[2019-03-22 20:10] VITALS: PULSE 133
== END 2019-03-23 02:20 | disposition expired | DRG 178 ==
LOC: VM.MS 10:45 → UNDOADMIN 10:45
PROVIDERS: ADMIT Family Medicine; ATTEND Family Medicine
DX: J69.0 Pneumonitis due to inhalation of food and vomit (principal); E87.0 Hyperosmolality and hypernatremia; G40.209 Localization-related (focal) (partial) symptomatic epilepsy and epileptic syndromes with complex partial seizures, not intractable, without status epilepticus; G80.9 Cerebral palsy, unspecified; M81.0 Age-related osteoporosis without current pathological fracture; F79 Unspecified intellectual disabilities; Z66 Do not resuscitate; E87.6 Hypokalemia; Z79.899 Other long term (current) drug therapy
CPT/HCPCS: 36415; 71045; 80048; 94760; A9270-GY